=== PATIENT | female | born 1985 | race Caucasian/White ===

== ENCOUNTER 2016-05-24 10:22 | Emergency (ER) | payer OTHER ==
--- NOTE | 2016-05-24 11:24 | DIAGNOSTIC IMAGING REPORT ---
PROCEDURE: XR FOOT 3 VIEWS - RIGHT INDICATION: TRAUMA/INJURY TECHNIQUE: Three views. COMPARISON: None. FINDINGS: There is an oblique fracture through the proximal phalanx of the third digit. IMPRESSION: 1. Oblique fracture proximal phalanx third digit
--- NOTE | 2016-05-24 13:10 | ED CLINICAL REPORT ---
Clinical Report - Physicians/Mid Levels [facility] [address] [place] [address] 05/24/2016 10:25 Patient: MIMA AVALOS Time Seen: 11:22. Arrived- By private vehicle. Historian- patient. HISTORY OF PRESENT ILLNESS Chief Complaint: Injury to the right 3rd toe. The injury happened just prior to arrival. The patient sustained a direct blow. Occurred at home. Patient is experiencing moderate pain. No other injury. REVIEW OF SYSTEMS The patient complains of pain on weight bearing. She has had swelling. No tingling, weakness, numbness, suspected foreign body or skin laceration. All systems otherwise negative, except as recorded above. PAST HISTORY Problems: no known problems. Additional Surgeries: . Medications: None. Allergies: None. SOCIAL HISTORY Never smoker. Occasional alcohol use. No drug use. ADDITIONAL NOTES The nursing notes have been reviewed. PHYSICAL EXAM Vital Signs: 05/24/2016 10:54 BP: 111/55. HR: 65. RR: 14. O2 saturation: 100%. Temp: 98.2 F. Pain level now: 10/01. Have been reviewed. Appearance: Alert. Oriented X3. Head: Head atraumatic. Eyes: Pupils equal, round and reactive to light. Eyes normal inspection. ENT: Nose normal. Neck: No decreased ROM in the neck. CVS: Pulses normal. Respiratory: No respiratory distress. Back: ROM normal. Skin: Skin intact. Skin warm and dry. Extremities: Right third toe: moderate tenderness and deformity consistent with a fracture and mild swelling of the middle phalanx; limited movement secondary to pain (diminished flexion and extension). Neurovascular intact distally. No erythema, laceration, abrasion, ecchymosis or puncture wound. No foreign body. No subungual hematoma or amputation present. No ankle injury. Foot and ankle exam otherwise negative. Extremities otherwise negative. Neuro, Vascular and Tendons: Vascular status intact. Sensation intact. Motor intact. Tendon function intact. Gait: Gait not tested due to pain. Neuro: Oriented X 3. No motor deficit. No sensory deficit. LABS, X-RAYS, AND EKG Rt Foot X-ray: Right toe(s) fracture. Moderately angulated fracture involving the middle phalanx of the third toe. Soft tissues normal. Joint spaces normal. No air in the soft tissue or foreign body. Views: 3 view foot series. Technique: good. The X-rays were independently viewed by me, interpreted by the radiologist and contemporaneously by me and discussed with the radiologist. Prior films were not available for comparison. Pulse Oximetry: 05/24/2016 10:54 O2 saturation: 100%. (FIO2 - room air). Interpretation: normal. PROGRESS AND PROCEDURES Digital Nerve Block- Toe: Digital nerve block performed on the right 3rd toe. Web space and dorsal approach utilized. Landmarks identified. Skin prepped. Total volume of 3 mL 2% Lidocaine infiltrated via two punctures using a 30-gauge needle. Patient cooperative during procedure. No complications encountered. Excellent anesthesia achieved. Splint Application: Velcro orthopedic shoe applied to right foot. Splint applied by escobar with direct supervision by me and the ED physician. Reassessed extremity following splint application. Neurovascular intact. Course of Care: Pt was found to have a 3rd toe fx on x-ray. I did aniyah tape the toe to the 2nd toe, which was the opposite direction of the angulation. I will refer the pt to podiatry for follow-up. Patient counseled in person regarding the patient's stable condition, test results, diagnosis and need for follow-up. Concerns were addressed. Old medical records reviewed. Disposition: Discharged. Condition: stable. CLINICAL IMPRESSION Closed displaced and mildly angulated proximal phalanx fracture of the right 3rd toe. INSTRUCTIONS Apply ice for 20 minutes three times a day as needed and until better. Don't apply ice directly to skin and don't use while asleep. Aniyah tape toes until released. Wear post-op shoe until released. Warnings: GENERAL WARNINGS: Return or contact your physician immediately if your condition worsens or changes unexpectedly, if not improving as expected, or if other problems arise. Prescription Medications: Hydrocodone/APAP 5mg / 325mg: take 1-2 orally every 6 hours as needed for pain. Dispense fifteen (15). No refill. Understanding of the discharge instructions verbalized by patient and family. Follow-up with: Jorge Yang DPM, Podiatry, , [facility], [address] [place] [address], [address], [place], [facility] Follow up. Call for the next available appointment. Reason for referral: Angulated toe fracture. (Electronically signed by Rosaura Alicia MD 05/30/2016 16:25)
--- NOTE | 2016-05-24 13:10 | ED NURSING NOTES ---
Clinical Report - Nurses [facility] [address] [place] [address] 05/24/2016 10:25 Patient: MIMA AVALOS TRIAGE Triage time 10:55. Acuity: LEVEL 4. Chief Complaint: INJURY TO THE RIGHT THIRD TOE and RIGHT FOOT. 10:55 05/24/16. 10:55 05/24/16. Alert. No acute distress. --11:00 New Estevez R.N. 10:54 05/24/16. BP: 111/55. HR: 65. RR: 14. O2 saturation: 100% on room air. Temp: 98.2 F (oral). Pain level now: 10/01. --11:00 New Estevez R.N. Weight: 62.5 kg stated. Height/Length: 64 inches Per Patient. BMI: 23.7. --10:55 New Estevez R.N. Medications None. --10:56 New Estevez R.N. Medication/allergy information source: the patient. --11:00 New Estevez R.N. Allergies None. --10:56 New Estevez R.N. History Arrived by private vehicle. Historian: patient. Accompanied by family. Primary physician (NONE). 10:55 05/24/16. This occurred just prior to arrival. Occurred at home. Mechanism of injury: a single blow (pt hit leg of couch). She has had trouble walking. Treatment CUSTOMER TECHNICAL SERVICES MANAGER: None. PAST MEDICAL HX: Tetanus status: up-to-date. Last normal menstrual period- Just ended yesterday. Has not received seasonal influenza immunization. SOCIAL HX: Never smoker. Occasional alcohol use. No drug use. FALL RISK ASSESSMENT: Fall risk assessment completed. No fall risk identified. NUTRITIONAL RISK ASSESSMENT: The nutritional risk assessment revealed no deficiencies. FUNCTIONAL ASSESSMENT: Functional assessment: no impairments noted. LEARNING NEEDS ASSESSMENT: The learning needs assessment revealed no barriers. SKIN INTEGRITY ASSESSMENT: Skin integrity risk assessment completed. No skin integrity risk identified. --11:00 New Estevez R.N. SOCIAL HX: No infectious disease exposure. ABUSE ASSESSMENT: No report of abuse. --11:00 New Estevez R.N. PROBLEMS: no known problems. ADDITIONAL SURGERIES: . --10:56 New Estevez R.N. Assessment 10:55 05/24/16. --11:00 New Estevez R.N. Interventions 10:55 05/24/16. 10:55 05/24/16. ID and allergy band on patient. To treatment room. --11:00 New Estevez R.N. PHYSICAL ASSESSMENT 10:57 05/24/16. Ambulatory to room. GENERAL / NEURO / PSYCH: Oriented X 4. Alert. Appears in no acute distress. EXTREMITIES: Extremities do not exhibit normal ROM. Capillary refill is less than 2 seconds in the extremities. Limping gait. Neuro-vascular status intact to the extremity. Right third toe: tenderness and deformity. SKIN: Skin is warm and dry. --10:57 New Estevez R.N. NURSING PROGRESS NOTES The plan of care for this patient has been created. Cold pack applied. Extremity elevated. Patient gowned. Reassurance given. Two patient identifiers checked. Call light placed in reach. Side rails up x 2. Bed placed in lowest position. Brakes of bed on. Brakes of chair on. --10:57 New Estevez R.N. 10:57 05/24/16. Patient ready for evaluation- chart flagged and notification provided. --10:57 New Estevez R.N. DISPOSITION / DISCHARGE 13:17 05/24/16. Condition at departure: improved. The goals identified in the patient's plan of care were met. No learning barriers present. Discharge instructions provided and reviewed with the patient. Reviewed warnings. Reviewed medication(s). Treatments reviewed. Reviewed referral to an orthopedic surgeon. Patient verbalized understanding. Written instructions provided in [place]bour[place]. The patient was discharged by the physician. She was discharged home. She left the Emergency Department ambulatory and via private vehicle. Patient driving. FALL RISK ASSESSMENT: Fall risk assessment completed. No fall risk identified. --13:17 New Estevez R.N. 13:15 05/24/16. BP: 114/72. HR: 82. RR: 12. O2 saturation: 99% on room air. Temp: 98.2 F (oral). --13:17 New Estevez R.N. 13:17 05/24/16. Departure time: 13:17. --13:17 New Estevez R.N. Locked/Released at 05/24/2016 13:39 by New Estevez R.N.
--- NOTE | 2016-05-24 13:10 | ED CLINICAL REPORT ---
Clinical Report - Physicians/Mid Levels [facility] [address] [place] [address] 05/24/2016 10:25 Patient: MIMA AVALOS Time Seen: 11:22. Arrived- By private vehicle. Historian- patient. HISTORY OF PRESENT ILLNESS Chief Complaint: Injury to the right 3rd toe. The injury happened just prior to arrival. The patient sustained a direct blow. Occurred at home. Patient is experiencing moderate pain. No other injury. REVIEW OF SYSTEMS The patient complains of pain on weight bearing. She has had swelling. No tingling, weakness, numbness, suspected foreign body or skin laceration. All systems otherwise negative, except as recorded above. PAST HISTORY Problems: no known problems. Additional Surgeries: . Medications: None. Allergies: None. SOCIAL HISTORY Never smoker. Occasional alcohol use. No drug use. ADDITIONAL NOTES The nursing notes have been reviewed. PHYSICAL EXAM Vital Signs: 05/24/2016 10:54 BP: 111/55. HR: 65. RR: 14. O2 saturation: 100%. Temp: 98.2 F. Pain level now: 10/01. Have been reviewed. Appearance: Alert. Oriented X3. Head: Head atraumatic. Eyes: Pupils equal, round and reactive to light. Eyes normal inspection. ENT: Nose normal. Neck: No decreased ROM in the neck. CVS: Pulses normal. Respiratory: No respiratory distress. Back: ROM normal. Skin: Skin intact. Skin warm and dry. Extremities: Right third toe: moderate tenderness and deformity consistent with a fracture and mild swelling of the middle phalanx; limited movement secondary to pain (diminished flexion and extension). Neurovascular intact distally. No erythema, laceration, abrasion, ecchymosis or puncture wound. No foreign body. No subungual hematoma or amputation present. No ankle injury. Foot and ankle exam otherwise negative. Extremities otherwise negative. Neuro, Vascular and Tendons: Vascular status intact. Sensation intact. Motor intact. Tendon function intact. Gait: Gait not tested due to pain. Neuro: Oriented X 3. No motor deficit. No sensory deficit. LABS, X-RAYS, AND EKG Rt Foot X-ray: Right toe(s) fracture. Moderately angulated fracture involving the middle phalanx of the third toe. Soft tissues normal. Joint spaces normal. No air in the soft tissue or foreign body. Views: 3 view foot series. Technique: good. The X-rays were independently viewed by me, interpreted by the radiologist and contemporaneously by me and discussed with the radiologist. Prior films were not available for comparison. Pulse Oximetry: 05/24/2016 10:54 O2 saturation: 100%. (FIO2 - room air). Interpretation: normal. PROGRESS AND PROCEDURES Digital Nerve Block- Toe: Digital nerve block performed on the right 3rd toe. Web space and dorsal approach utilized. Landmarks identified. Skin prepped. Total volume of 3 mL 2% Lidocaine infiltrated via two punctures using a 30-gauge needle. Patient cooperative during procedure. No complications encountered. Excellent anesthesia achieved. Splint Application: Velcro orthopedic shoe applied to right foot. Splint applied by escobar with direct supervision by me and the ED physician. Reassessed extremity following splint application. Neurovascular intact. Course of Care: Pt was found to have a 3rd toe fx on x-ray. I did aniyah tape the toe to the 2nd toe, which was the opposite direction of the angulation. I will refer the pt to podiatry for follow-up. Patient counseled in person regarding the patient's stable condition, test results, diagnosis and need for follow-up. Concerns were addressed. Old medical records reviewed. Disposition: Discharged. Condition: stable. CLINICAL IMPRESSION Closed displaced and mildly angulated proximal phalanx fracture of the right 3rd toe. INSTRUCTIONS Apply ice for 20 minutes three times a day as needed and until better. Don't apply ice directly to skin and don't use while asleep. Aniyah tape toes until released. Wear post-op shoe until released. Warnings: GENERAL WARNINGS: Return or contact your physician immediately if your condition worsens or changes unexpectedly, if not improving as expected, or if other problems arise. Prescription Medications: Hydrocodone/APAP 5mg / 325mg: take 1-2 orally every 6 hours as needed for pain. Dispense fifteen (15). No refill. Understanding of the discharge instructions verbalized by patient and family. Follow-up with: Jorge Yang DPM, Podiatry, , [facility], [address] [place] [address], [address], [place], [facility] Follow up. Call for the next available appointment. Reason for referral: Angulated toe fracture. (Electronically signed by Rosauar Alicia MD 05/30/2016 16:25)
--- NOTE | 2016-05-24 13:10 | ED ORDER SUMMARY ---
..... Patient: MIMA AVALOS OrderSheet [facility] VisitID: [id number] [address] [place] [address] 31y, F Registration Date/Time: 05/24/2016 ORDER SHEET Weight: 62.5 kg (stated) Allergies: None GENERAL ORDERS: Foot 3V Right Urgent (10:58 05/24/2016 JBoardley R.N. per protocol) (Ack 11:18 LMuller) (11:20 JBoardley R.N.) - (Please aniyah-tape 2nd and 3rd toes on the R) (13:06 05/24/2016 Cristhian VO) (Ack 13:07 LMuller) (13:15 JBoardley R.N.) Post-op Shoe (13:06 05/24/2016 Cristhian VO) (Ack 13:07 LMuller) (13:15 JBoardley R.N.) MEDICATION ORDERS: IV FLUIDS: ORDER SHEET NOTES: [Electronically signed by New Estevez R.N. (13:38 05/24/2016)] [Electronically signed by Rosaura Alicia MD (16:25 05/30/2016)] [Electronically locked/signed by New Estevez R.N. (13:38 05/24/2016)]
--- NOTE | 2016-05-24 13:10 | ED ORDER SUMMARY ---
..... Patient: MIMA AVALOS OrderSheet [facility] VisitID: [id number] [address] [place] [address] 31y, F Registration Date/Time: 05/24/2016 ORDER SHEET Weight: 62.5 kg (stated) Allergies: None GENERAL ORDERS: Foot 3V Right Urgent (10:58 05/24/2016 JBoardley R.N. per protocol) (Ack 11:18 LMuller) (11:20 JBoardley R.N.) - (Please aniyah-tape 2nd and 3rd toes on the R) (13:06 05/24/2016 Cristhian VO) (Ack 13:07 LMuller) (13:15 JBoardley R.N.) Post-op Shoe (13:06 05/24/2016 Cristhian VO) (Ack 13:07 LMuller) (13:15 JBoardley R.N.) MEDICATION ORDERS: IV FLUIDS: ORDER SHEET NOTES: [Electronically signed by New Estevez R.N. (13:38 05/24/2016)] [Electronically signed by Rosaura Alicia MD (16:25 05/30/2016)] [Electronically locked/signed by New Estevez R.N. (13:38 05/24/2016)]
--- NOTE | 2016-05-24 13:10 | ED NURSING NOTES ---
Clinical Report - Nurses [facility] [address] [place] [address] 05/24/2016 10:25 Patient: MIMA AVALOS TRIAGE Triage time 10:55. Acuity: LEVEL 4. Chief Complaint: INJURY TO THE RIGHT THIRD TOE and RIGHT FOOT. 10:55 05/24/16. 10:55 05/24/16. Alert. No acute distress. --11:00 New Estevez R.N. 10:54 05/24/16. BP: 111/55. HR: 65. RR: 14. O2 saturation: 100% on room air. Temp: 98.2 F (oral). Pain level now: 10/01. --11:00 New Estevez R.N. Weight: 62.5 kg stated. Height/Length: 64 inches Per Patient. BMI: 23.7. --10:55 New Estevez R.N. Medications None. --10:56 New Estevez R.N. Medication/allergy information source: the patient. --11:00 New Estevez R.N. Allergies None. --10:56 New Estevez R.N. History Arrived by private vehicle. Historian: patient. Accompanied by family. Primary physician (NONE). 10:55 05/24/16. This occurred just prior to arrival. Occurred at home. Mechanism of injury: a single blow (pt hit leg of couch). She has had trouble walking. Treatment GROUP MANAGER: None. PAST MEDICAL HX: Tetanus status: up-to-date. Last normal menstrual period- Just ended yesterday. Has not received seasonal influenza immunization. SOCIAL HX: Never smoker. Occasional alcohol use. No drug use. FALL RISK ASSESSMENT: Fall risk assessment completed. No fall risk identified. NUTRITIONAL RISK ASSESSMENT: The nutritional risk assessment revealed no deficiencies. FUNCTIONAL ASSESSMENT: Functional assessment: no impairments noted. LEARNING NEEDS ASSESSMENT: The learning needs assessment revealed no barriers. SKIN INTEGRITY ASSESSMENT: Skin integrity risk assessment completed. No skin integrity risk identified. --11:00 New Estevez R.N. SOCIAL HX: No infectious disease exposure. ABUSE ASSESSMENT: No report of abuse. --11:00 New Estevez R.N. PROBLEMS: no known problems. ADDITIONAL SURGERIES: . --10:56 New Estevez R.N. Assessment 10:55 05/24/16. --11:00 New Estevez R.N. Interventions 10:55 05/24/16. 10:55 05/24/16. ID and allergy band on patient. To treatment room. --11:00 New Estevez R.N. PHYSICAL ASSESSMENT 10:57 05/24/16. Ambulatory to room. GENERAL / NEURO / PSYCH: Oriented X 4. Alert. Appears in no acute distress. EXTREMITIES: Extremities do not exhibit normal ROM. Capillary refill is less than 2 seconds in the extremities. Limping gait. Neuro-vascular status intact to the extremity. Right third toe: tenderness and deformity. SKIN: Skin is warm and dry. --10:57 New Estevez R.N. NURSING PROGRESS NOTES The plan of care for this patient has been created. Cold pack applied. Extremity elevated. Patient gowned. Reassurance given. Two patient identifiers checked. Call light placed in reach. Side rails up x 2. Bed placed in lowest position. Brakes of bed on. Brakes of chair on. --10:57 New Estevez R.N. 10:57 05/24/16. Patient ready for evaluation- chart flagged and notification provided. --10:57 New Estevez R.N. DISPOSITION / DISCHARGE 13:17 05/24/16. Condition at departure: improved. The goals identified in the patient's plan of care were met. No learning barriers present. Discharge instructions provided and reviewed with the patient. Reviewed warnings. Reviewed medication(s). Treatments reviewed. Reviewed referral to an orthopedic surgeon. Patient verbalized understanding. Written instructions provided in Tunisian. The patient was discharged by the physician. She was discharged home. She left the Emergency Department ambulatory and via private vehicle. Patient driving. FALL RISK ASSESSMENT: Fall risk assessment completed. No fall risk identified. --13:17 New Estevez R.N. 13:15 05/24/16. BP: 114/72. HR: 82. RR: 12. O2 saturation: 99% on room air. Temp: 98.2 F (oral). --13:17 New Estevez R.N. 13:17 05/24/16. Departure time: 13:17. --13:17 New Estevez R.N. Locked/Released at 05/24/2016 13:39 by New Estevez R.N.
--- NOTE | 2016-05-30 16:25 | ED MAR SUMMARY ---
..... Medication Administration Record [facility] [address] [place], [place] [id number] Patient: MIMA AVALOS Alysha Visit ID: [id number] 31y, F Weight: 62.5 kg Height/Length: 64 in BMI: 23.7 ALLERGIES: None
--- NOTE | 2016-05-30 16:25 | ED MED RECONCILIATION SUMMARY ---
Patient: MIMA AVALOS Medication Reconciliation Report [facility] VisitID: [id number] [address] [place] [address] 31y, F Registration Date/Time: 05/24/2016 Weight: 62.5 kg Height/Length: 64 in. BMI: 23.7 ALLERGIES: None The patient's Home Medications are listed below: NONE. The source(s) of the original Home Medication information: patient The following Medications were given to the patient in the Emergency Department: None. The following Medications were prescribed to the patient: Hydrocodone/APAP 5mg / 325mg: take 1-2 orally every 6 hours as needed for pain. Dispense fifteen (15). No refill. -- Rosaura Alicia MD
--- NOTE | 2016-05-30 16:25 | ED MAR SUMMARY ---
..... Medication Administration Record [facility] [address] [place], [place] [id number] Patient: MIMA AVALOS Alysha Visit ID: [id number] 31y, F Weight: 62.5 kg Height/Length: 64 in BMI: 23.7 ALLERGIES: None
--- NOTE | 2016-05-30 16:25 | ED DISCHARGE INSTRUCTIONS ---
Patient: MIMA AVALOS General Instructions [facility] VisitID: [id number] [address] [place] [address] 31y, F Registration Date/Time: 05/24/2016 Closed displaced and mildly angulated proximal phalanx fracture of the right 3rd toe. INSTRUCTIONS Apply ice for 20 minutes three times a day as needed and until better. Don't apply ice directly to skin and don't use while asleep. Aniyah tape toes until released. Wear post-op shoe until released. Warnings: GENERAL WARNINGS: Return or contact your physician immediately if your condition worsens or changes unexpectedly, if not improving as expected, or if other problems arise. Prescription Medications: Hydrocodone/APAP 5mg / 325mg: take 1-2 orally every 6 hours as needed for pain. Dispense fifteen (15). No refill. Understanding of the discharge instructions verbalized by patient and family. Follow-up with: Jorge Yang DPM, Podiatry, , [facility], [address] [place] [address], [address], [place] [address] Follow up. Call for the next available appointment. Reason for referral: Angulated toe fracture. ADDITIONAL INFORMATION Fracture:Toe [Closed] You have a fracture of your toe (broken toe). This causes local pain, swelling and bruising. This injury takes about four weeks to heal. Toe injuries are often treated by taping the injured toe to the next one ("aniyah taping"). This protects the injured toe and holds it in position. If the TOENAIL has been severely injured, it may fall off in 1-2 weeks. It takes up to 12 months for a new toenail to grow back. Home Care: 1) You may be given a cast shoe to wear to prevent movement in your toe. If not, you can use a sandal or any shoe that does not put pressure on the injured toe until the swelling and pain go away. If using a sandal, be careful not to strike your foot against anything, since another injury could make the fracture worse. If you were given crutches, do not put full weight on the injured foot until you can do so without pain. 2) Keep your foot elevated to reduce pain and swelling. When sleeping, place a pillow under the injured leg. When sitting, support the injured leg so it is level with your waist. This is very important during the first 48 hours. 3) Apply an ice pack (ice cubes in a plastic bag, wrapped in a towel) over the injured area for 20 minutes every 1-2 hours the first day. Continue with ice packs 3-4 times a day for the next two days, then as needed for the relief of pain and swelling. 4) If aniyah tape was applied and it becomes wet or dirty, change it. You may replace it with paper, plastic or cloth tape. Cloth tape and paper tapes must be kept dry. 5) You may use acetaminophen (Tylenol) or ibuprofen (Motrin, Advil) to control pain, unless another pain medicine was prescribed. [ NOTE : If you have chronic liver or kidney disease or ever had a stomach ulcer or GI bleeding, talk with your doctor before using these medicines.] 6) You may return to sports or physical education activities after 4 weeks or when you can run without pain. Follow Up With Your Doctor In One Week, Or As Advised By Our Staff, To Be Sure The Bone Is Healing Properly. [NOTE: Any X-rays taken will be reviewed by a radiologist. You will be notified of any new findings that may affect your care.] Get Prompt Medical Attention If Any Of The Following Occur: Increasing pain or swelling Toe becomes cold, blue, numb or tingly Signs of infection: fever, redness, warmth, swelling or drainage from the wound Fever of 100.4F (38C) or higher, or as directed by your healthcare provider You have been given the following additional information: Fracture, Toe [Closed] (Electronically signed by Rosaura Alicia MD 05/30/2016 16:25)
--- NOTE | 2016-05-30 16:25 | ED DISCHARGE INSTRUCTIONS ---
Patient: MIMA AVALOS General Instructions [facility] VisitID: [id number] [address] [place] [address] 31y, F Registration Date/Time: 05/24/2016 Closed displaced and mildly angulated proximal phalanx fracture of the right 3rd toe. INSTRUCTIONS Apply ice for 20 minutes three times a day as needed and until better. Don't apply ice directly to skin and don't use while asleep. Aniyah tape toes until released. Wear post-op shoe until released. Warnings: GENERAL WARNINGS: Return or contact your physician immediately if your condition worsens or changes unexpectedly, if not improving as expected, or if other problems arise. Prescription Medications: Hydrocodone/APAP 5mg / 325mg: take 1-2 orally every 6 hours as needed for pain. Dispense fifteen (15). No refill. Understanding of the discharge instructions verbalized by patient and family. Follow-up with: Jorge Yang DPM, Podiatry, , [facility], [address] [place] [address], [address], [place] [address] Follow up. Call for the next available appointment. Reason for referral: Angulated toe fracture. ADDITIONAL INFORMATION Fracture:Toe [Closed] You have a fracture of your toe (broken toe). This causes local pain, swelling and bruising. This injury takes about four weeks to heal. Toe injuries are often treated by taping the injured toe to the next one ("aniyah taping"). This protects the injured toe and holds it in position. If the TOENAIL has been severely injured, it may fall off in 1-2 weeks. It takes up to 12 months for a new toenail to grow back. Home Care: 1) You may be given a cast shoe to wear to prevent movement in your toe. If not, you can use a sandal or any shoe that does not put pressure on the injured toe until the swelling and pain go away. If using a sandal, be careful not to strike your foot against anything, since another injury could make the fracture worse. If you were given crutches, do not put full weight on the injured foot until you can do so without pain. 2) Keep your foot elevated to reduce pain and swelling. When sleeping, place a pillow under the injured leg. When sitting, support the injured leg so it is level with your waist. This is very important during the first 48 hours. 3) Apply an ice pack (ice cubes in a plastic bag, wrapped in a towel) over the injured area for 20 minutes every 1-2 hours the first day. Continue with ice packs 3-4 times a day for the next two days, then as needed for the relief of pain and swelling. 4) If aniyah tape was applied and it becomes wet or dirty, change it. You may replace it with paper, plastic or cloth tape. Cloth tape and paper tapes must be kept dry. 5) You may use acetaminophen (Tylenol) or ibuprofen (Motrin, Advil) to control pain, unless another pain medicine was prescribed. [ NOTE : If you have chronic liver or kidney disease or ever had a stomach ulcer or GI bleeding, talk with your doctor before using these medicines.] 6) You may return to sports or physical education activities after 4 weeks or when you can run without pain. Follow Up With Your Doctor In One Week, Or As Advised By Our Staff, To Be Sure The Bone Is Healing Properly. [NOTE: Any X-rays taken will be reviewed by a radiologist. You will be notified of any new findings that may affect your care.] Get Prompt Medical Attention If Any Of The Following Occur: Increasing pain or swelling Toe becomes cold, blue, numb or tingly Signs of infection: fever, redness, warmth, swelling or drainage from the wound Fever of 100.4F (38C) or higher, or as directed by your healthcare provider You have been given the following additional information: Fracture, Toe [Closed] (Electronically signed by Rosaura Alicia MD 05/30/2016 16:25)
--- NOTE | 2016-05-30 16:25 | ED MED RECONCILIATION SUMMARY ---
Patient: MIMA AVALOS Medication Reconciliation Report [facility] VisitID: [id number] [address] [place] [address] 31y, F Registration Date/Time: 05/24/2016 Weight: 62.5 kg Height/Length: 64 in. BMI: 23.7 ALLERGIES: None The patient's Home Medications are listed below: NONE. The source(s) of the original Home Medication information: patient The following Medications were given to the patient in the Emergency Department: None. The following Medications were prescribed to the patient: Hydrocodone/APAP 5mg / 325mg: take 1-2 orally every 6 hours as needed for pain. Dispense fifteen (15). No refill. -- Rosaura Alicia MD
== END 2016-05-24 13:17 | disposition home or self-care (01) ==
LOC: ED SRH 10:22
DX: S92.511A Displaced fracture of proximal phalanx of right lesser toe(s), initial encounter for closed fracture (principal); W22.03XA Walked into furniture, initial encounter; Y92.009 Unspecified place in unspecified non-institutional (private) residence as the place of occurrence of the external cause; Y93.9 Activity, unspecified; Y99.9 Unspecified external cause status